=== PATIENT | female | born 1975 | race Caucasian/White ===

== ENCOUNTER 2017-09-20 12:35 | Emergency (ER) | payer OTHER ==
[2017-09-20 12:44] VITALS: BMI 26.6
[2017-09-20 12:48] VITALS: BP 122/78; RESP 16; TEMP 99.3; O2SAT 98
--- NOTE | 2017-09-20 13:16 | C.PDOC ---
History Of Present Illness Fallon Miguel is 42 year old female who presents complaining of sore throat, cough, phlegm, and body aches, onset 6 days ago. She feels no improvement after taking Tylenol at home. No nausea, vomiting, or diarrhea. + low grade temperature. PMD: Dr. Hedy Meyer Time Seen by Provider: 09/20/17 12:49 Chief Complaint (Nursing): Flu-like Symptoms History Per: Patient History/Exam Limitations: no limitations Onset/Duration Of Symptoms: Days (x 6) Current Symptoms Are (Timing): Still Present Location Of Pain: Throat, Diffuse Myalgias Associated Symptoms: Sore Throat, Cough Past Medical History Reviewed: Historical Data, Nursing Documentation, Vital Signs Vital Signs: Last Vital Signs Temp 99.3 F 09/20/17 12:45 Pulse 92 H 09/20/17 13:24 Resp 16 09/20/17 12:45 BP 122/78 09/20/17 12:45 Pulse Ox 98 09/20/17 14:56 - Medical History PMH: No Chronic Diseases Surgical History: (x 4) - [facility] Procedures CLOSURE SKIN & SUBCUTANEOUS NEC (05/08/13) TETANUS TOXOID ADMINIST (05/08/13) Family History: States: No Known Family Hx - Social History Hx Tobacco Use: No Hx Alcohol Use: No Hx Substance Use: No - Immunization History Hx Tetanus Toxoid Vaccination: No Hx Influenza Vaccination: No Hx Pneumococcal Vaccination: No Review Of Systems Except As Marked, All Systems Reviewed And Found Negative. Constitutional: Positive for: Fever (low grade), Other (Body aches) ENT: Positive for: Throat Pain Respiratory: Positive for: Cough, Sputum Gastrointestinal: Negative for: Nausea, Vomiting, Diarrhea Physical Exam - Physical Exam Appears: Non-toxic, No Acute Distress Skin: Normal Color, Warm, Dry Head: Atraumatic, Normacephalic Eye(s): bilateral: Normal Inspection, PERRL, EOMI Ear(s): Bilateral: Normal Nose: Normal Oral Mucosa: Moist Throat: Normal Neck: Normal, Normal ROM, Supple Cardiovascular: Rhythm Regular Respiratory: Normal Breath Sounds, No Rhonchi, No Wheezing Neurological/Psych: Oriented x3, Normal Speech ED Course And Treatment O2 Sat by Pulse Oximetry: 98 (RA) Pulse Ox Interpretation: Normal Progress Note: 13:38 Patient is medically stable. Will d/c with Zithromax and Motrin. Patient damon follow up with PMD for further evaluation Medical Decision Making Medical Decision Making: Time: 13:15 Initial Impression: 42 year old female with URI symptoms Initial Plan: * POC urine neg * Given Tylenol 650 mg in the ED Disposition Counseled Patient/Family Regarding: Studies Performed, Diagnosis, Need For Followup, Rx Given - Disposition Referrals: Hedy Meyer MD [Staff Provider] - Disposition: HOME/ ROUTINE Disposition Time: 13:38 Condition: STABLE Additional Instructions: FOLLOW UP WITH PMD DR. MEYER ON FRIDAY FOR RE-EVALUATION. DRINK PLENTY OF WATER. IF SYMPTOMS GET WORSE OR ANY NEW CONCERNING SYMPTOMS DEVELOP RETURN TO ED. Prescriptions: Ibuprofen [Motrin Tab] 1 tab PO Q6H PRN #15 tab PRN Reason: Pain, Moderate (4-7) Azithromycin [Zithromax] 250 mg PO DAILY #6 tab Instructions: Acute Bronchitis (ED) Forms: [facility] (Danish) - POA Present On Arrival: None - Clinical Impression Clinical Impression: Bronchitis - PA / SECURITY REP / Resident Statement MD/DO has reviewed & agrees with the documentation as recorded. - Scribe Statement The provider has reviewed the documentation as recorded by the Linnette Alvares All medical record entries made by the Yaritzaibe were at my direction and personally dictated by me. I have reviewed the chart and agree that the record accurately reflects my personal performance of the history, physical exam, medical decision making, and the department course for this patient. I have also personally directed, reviewed, and agree with the discharge instructions and disposition.
[2017-09-20 13:25] VITALS: PULSE 92
== END 2017-09-20 13:54 | disposition home or self-care (01) ==
LOC: C.ER 12:35
DX: J40 Bronchitis, not specified as acute or chronic (principal)

== ENCOUNTER 2018-03-16 21:18 | Emergency (ER) | payer OTHER ==
[2018-03-16 21:18] VITALS: BMI 26.6
[2018-03-16 21:26] VITALS: BP 124/83; PULSE 100; RESP 20; TEMP 97.8; O2SAT 100
--- NOTE | 2018-03-16 21:38 | C.PDOC ---
History Of Present Illness 43 year old female presents to ED with complaints of fever and sore throat for 2 days. Today she reports malaise and bodyaches. She took ibuprofen with minimal relief. Denies any cough, SOB or chest pain. Time Seen by Provider: 03/16/18 21:29 Chief Complaint (Nursing): Fever History Per: Patient History/Exam Limitations: None Onset/Duration Of Symptoms: Days (2) Current Symptoms Are (Timing): Still Present Severity: Mild Past Medical History Reviewed: Historical Data, Nursing Documentation, Vital Signs Vital Signs: Last Vital Signs Temp 97.8 F 03/16/18 21:22 Pulse 100 H 03/16/18 21:22 Resp 20 03/16/18 21:22 BP 124/83 03/16/18 21:22 Pulse Ox 100 03/16/18 21:45 - Medical History PMH: No Chronic Diseases Surgical History: (x 4) - [facility] Procedures CLOSURE SKIN & SUBCUTANEOUS NEC (05/08/13) TETANUS TOXOID ADMINIST (05/08/13) Family History: States: Unknown Family Hx - Social History Hx Tobacco Use: No Hx Alcohol Use: No Hx Substance Use: No - Immunization History Hx Tetanus Toxoid Vaccination: No Hx Influenza Vaccination: No Hx Pneumococcal Vaccination: No Review Of Systems Constitutional: Positive for: Fever, Malaise Eyes: Negative for: Redness ENT: Positive for: Throat Pain. Negative for: Ear Pain Cardiovascular: Negative for: Chest Pain, Palpitations Respiratory: Negative for: Cough, Shortness of Breath Gastrointestinal: Negative for: Abdominal Pain Skin: Negative for: Rash Neurological: Negative for: Headache Physical Exam - Physical Exam Appears: Non-toxic, No Acute Distress Skin: Warm, Dry, No Diaphoretic, No Pale Head: Atraumatic, Normacephalic Eye(s): bilateral: Normal Inspection Ear(s): Bilateral: Normal (no erythema) Nose: Normal Oral Mucosa: Moist Throat: Erythema, No Exudate, No Drooling, No Mass Neck: Normal ROM Chest: Symmetrical Cardiovascular: Rhythm Regular, No Murmur Respiratory: Normal Breath Sounds, No Wheezing Extremity: Normal ROM, No Tenderness, No Pedal Edema, No Calf Tenderness, No Deformity, No Swelling Neurological/Psych: Oriented x3, Normal Speech ED Course And Treatment O2 Sat by Pulse Oximetry: 100 Medical Decision Making Medical Decision Making: Patient with complaints of fever and sore throat, clinical exam consistent with acute pharyngitis. Treated with Amoxicillin and tylenol. Patient remained afebrile and in no distress. Patient discharged with Rx Disposition Counseled Patient/Family Regarding: Diagnosis, Need For Followup, Rx Given - Disposition Disposition: HOME/ ROUTINE Disposition Time: 21:42 Condition: GOOD Additional Instructions: Take Tylenol or Motrin alternating every 4-6 hours for Fever 100.4F or higher. Rest and drink plenty of fluids to prevent dehydration. Take antibiotic twice daily and be sure to finish taking all of antibiotic. Follow up with your primary medical doctor or clinic in 2-5 days for further evaluation Prescriptions: Amoxicillin [Amoxil 500 mg Cap] 500 mg PO BID #20 cap Instructions: Sore Throat, Adult (DC) Forms: [facility] (Slovak) - POA Present On Arrival: None - Clinical Impression Clinical Impression: Pharyngitis
== END 2018-03-16 22:04 | disposition home or self-care (01) ==
LOC: C.ER 21:18
DX: J02.9 Acute pharyngitis, unspecified (principal)